=== PATIENT | female | born 1940 | race American Indian/Alaskan Native ===

== ENCOUNTER 2019-02-02 06:16 | Day surgery (SDC) | payer MEDICARE ==
[~2019-02-02 06:16] MED LIST: TETRACAINE 0.5% OS NR
[2019-02-02] MEDS: MYDRIACYL OS SCH ×3 (07:51→08:01)
[2019-02-02] MEDS: AK-Dilate OS SCH ×3 (07:51→08:01)
[2019-02-02] MEDS: VIGAMOX OS SCH ×3 (07:51→08:01)
[2019-02-02] MEDS ORDERED: VERSED ONE (08:26)
--- NOTE | 2019-02-02 08:39 | Anesthesia Consultation ---
Anesthesia Consult and Med Hx Date of service: 02/02/19 - Airway ROM Head & Neck: Inadequate Mental/Hyoid Distance: Adequate Mallampati Class: Class III Intubation Access Assessment: Possibly Difficult - Pulmonary Exam CTA: Yes - Cardiac Exam Cardiac Exam: RRR - Pre-Operative Health Status ASA Pre-Surgery Classification: ASA3 Proposed Anesthetic Plan: MAC - Pulmonary Hx Smoking: No Hx Sleep Apnea: Yes - Cardiovascular System Hx Hypertension: Yes Hx Heart Attack/AMI: No - Central Nervous System Hx Psychiatric Problems: Yes - Gastrointestinal Hx Ulcer: Yes Hx Gastroesophageal Reflux Disease: Yes - Endocrine Hx Renal Disease: No Hx Hypothyroidism: Yes - Other Systems Hx Obesity: No
--- NOTE | 2019-02-02 08:39 | Anesthesia Day of Surgery ---
Anesthesia Day of Surgery - Day of Surgery Patient Examined: Yes Patient H&P Reviewed: Yes Patient is NPO: Yes
--- NOTE | 2019-02-02 09:01 | Operative Report ---
Operative Report Operative Report: PATIENT'S NAME: DATE OF : DATE OF SURGERY: 02/02/2019 PREOPERATIVE DIAGNOSIS: Cataract left eye POSTOPERATIVE DIAGNOSIS: Same OPERATIVE PROCEDURE: Phacoemulsification with intraocular lens implantation, left eye SURGEON: Chiqui Brown M.D. SENIOR MILITARY ANALYST SURGEON: Valorie Lens: [id number] 15.0 D ANESTHESIA: Monitored anesthesia care in combination with topical and intracameral anesthesia because of the established specific risk of reflux, arrhythmias, or anxiety attacks associated with ocular manipulation, as well as the difficulty of the weaver narrow fabrics to manage such potentially catastrophic events while simultaneously attempting to complete the surgical procedure and was deemed necessary for the patient's safety to have an Reclamation Furnace Operator present during the procedure whenever possible. An Reclamation Furnace Operator was utilized to regulate the intravenous sedation of the patient so the patient was cooperative yet not asleep in order for the patient to successfully maintain fixation of the eye on the operating light of the microscope. COMPLICATIONS: No surgical complications No blood loss. ALLERGIES: No known drug allergies PROGNOSIS: Excellent INDICATIONS FOR SURGERY: The patient is undergoing surgery in the hopes of eliminating or improving these visual difficulties. Of note patient is also diagnosed recently with FUCHS' dystrophy PROCEDURE: After arriving at the surgery center, the patient was given topical anesthetic and dilating drops, as noted in the record. The patient was then taken into the operating room and given more anesthetic drops. The eyelids, lashes, and lid margins were scrubbed with Betadine solution, and the patient was draped. The Nurse Reclamation Furnace Operator administered IV sedation and monitored the patient during the procedure. The eye was then fixated with a 0.12, and a stab incision was made in the peripheral clear cornea into the anterior chamber. This was made on my left side. Viscoelastic was next used to fill the anterior chamber. The eye was once again fixated with the 0.12 forceps and a keratome was used make an incision in clear cornea peripherally on my right hand side temporally. The capsule forceps were used to open the central anterior capsule and then make a continuous round capsulotomy. Hydrodissection was carried out utilizing a cannula and balanced salt solution to delineate the cortical material from the capsule and the nucleus from the cortical material. The phaco tip was introduced into the eye and used to remove the anterior cortical material in the area of the capsulotomy. Then the phaco tip was buried into the nucleus, and a chopping instrument was introduced into the eye and used to provide countertraction in the nucleus between this instrument and the phaco tip fracturing the nucleus. This procedure was repeated multiple times, providing multiple small segments of the lens, and then the phaco tip was used to remove each of these segments. An I/A tip was then used to remove the remaining cortex. The anterior chamber was refilled with viscoelastic. An one-piece, acrylic intraocular lens was then placed into an inserting cartridge. The tip of the inserting cartridge was introduced into the keratome incision and into the anterior chamber. The implant was gently advanced through the cartridge and into the eye, where it unfolded, and both haptics were placed in the capsular bag, where it centered nicely and appeared to be well fixated. After placement of the intraocular lens, the I~and~A handpiece was placed back into the eye and used to remove the viscoelastic, including viscoelastic that was behind the optic of the intraocular lens. The anterior chamber was then filled with balanced salt solution, and hydration of the wound was used to cause swelling of the wound and more appropriate watertight closure. When the wound was found to be firm, the patient was asked to comment on how bright the light was. If there was no light perception at all or if the light was substantially dimmer than during the rest of the surgery, the amount of fluid in the eye was decompressed to lower the intraocular pressure until the patient could see the bright light again. This was done to avoid any damage or decreased blood flow to the optic nerve. MEDICATIONS APPLIED AT END OF SURGERY: One drop of Pred Forte and Vigamox The patient was given a shield to wear at night and was instructed not to rub or push on the eye. DISCHARGE SUMMARY: The patient was released in stable condition. The patient and those with the patient were given a written sheet of postoperative instructions and counseling on any abnormal laboratory studies. The patient is to see us tomorrow for follow-up in the office and is to call immediately for any difficulties. Chiqui Brown M.D. Date
--- NOTE | 2019-02-02 09:02 | Short Stay Summary ---
Short Stay Documentation Date of service: 02/02/19 - History H&P: obtained from office - Allergies and Medications Current Medications: Allergies No Known Allergies Allergy (Verified 02/01/19 13:01) Home Medications Medication Instructions Recorded Confirmed Last Taken Type Amitriptyline [Elavil] 2 tab PO QHS 02/01/19 02/01/19 Unknown History Bacillus Coagulans [Digestive 1 tab PO DAILY 02/01/19 02/01/19 Unknown History Advantage] C,E,Zinc,Copper 11/Ytjrg1e/Lut 1 each PO DAILY 02/01/19 02/01/19 Unknown History [Ocuvite Adult 50 Plus Softgel] C/Sourcherry/Celery/Grape Seed 1 each PO DAILY 02/01/19 02/01/19 Unknown History [Tart Benedict Capsule] Cholecalciferol (Vitamin D3) 5,000 unit PO DAILY 02/01/19 02/01/19 Unknown History [Vitamin D3] Cyanocobalamin (Vitamin B-12) 2,500 mcg PO DAILY 02/01/19 02/01/19 Unknown History [Vitamin B12] Docusate Sodium [Stool Softener] 100 mg PO DAILY PRN 02/01/19 02/01/19 Unknown History Duloxetine HCl [DULoxetine] 60 mg PO QHS 02/01/19 02/01/19 Unknown History Fenofibrate 160 mg PO DAILY 02/01/19 02/01/19 Unknown History Fluticasone [Flonase] 1 spray NS BID 02/01/19 02/01/19 Unknown History Furosemide [Lasix TAB] 20 mg PO DAILY 02/01/19 02/01/19 Unknown History Laila Root [Laila] 250 mg PO DAILY 02/01/19 02/01/19 Unknown History HYDROcodone/APAP 7.5-325 [[place] 1 tab PO BID PRN 02/01/19 02/01/19 Unknown History 7.5-325 mg TAB] Latanoprost 0.005% 1 drop OP DAILY 02/01/19 02/01/19 Unknown History Levothyroxine [Synthroid] 100 mcg PO QAM 02/01/19 02/01/19 Unknown History Meloxicam 15 mg PO DAILY 02/01/19 02/01/19 Unknown History Metoprolol Xl [Metoprolol 50 mg PO QDAY 02/01/19 02/01/19 Unknown History SUCCINATE ER TAB] Multivit-Min/Iron/Folic/Lutein 1 each PO DAILY 02/01/19 02/01/19 Unknown History [Centrum Silver Women Tablet] Omeprazole 40 mg PO QAM 02/01/19 02/01/19 Unknown History Potassium Chloride [Klor-Con M10] 10 meq PO Q48H 02/01/19 02/01/19 Unknown History Psyllium Seed (with Sugar) 1 each PO DAILY 02/01/19 02/01/19 Unknown History [Metamucil Fiber Wafer] Soy Isofla/Blk Cohosh/Mag Bark 155 mg PO DAILY 02/01/19 02/01/19 Unknown History [Estroven 155 mg Capsule] Ubidecarenone [Coq10] 200 mg PO DAILY 02/01/19 02/01/19 Unknown History amLODIPine [Norvasc] 5 mg PO DAILY 02/01/19 02/01/19 Unknown History tiZANidine [Zanaflex] 4 mg PO QHS 02/01/19 02/01/19 Unknown History traMADol [Ultram 50 MG tab] 50 mg PO DAILY PRN 02/01/19 02/01/19 Unknown History Active Medications Acetazolamide (Diamox) 500 mg PO ONCE ONE Stop: 02/02/19 09:00 Moxifloxacin HCl (Vigamox) 1 drops OS Q5MIN JUDIT Stop: 02/04/19 23:59 Last Admin: 02/02/19 08:01 Dose: 1 drops Documented by: Phenylephrine HCl (Ak-Dilate) 1 drops OS Q5MIN JUDIT Stop: 02/04/19 23:59 Last Admin: 02/02/19 08:01 Dose: 1 drops Documented by: Prednisolone Acetate (Pred Forte 1%) 1 drops OS QID JUDIT Tetracaine HCl (Tetracaine 0.5%) 1 drops OS ONCE NR Stop: 02/02/19 23:59 Last Admin: 02/02/19 07:50 Dose: 1 drops Documented by: Tropicamide (Mydriacyl) 1 drops OS Q5MIN JUDIT Stop: 02/02/19 23:59 Last Admin: 02/02/19 08:01 Dose: 1 drops Documented by: - Brief post op/procedure progress note Date of procedure: 02/02/19 Pre-op diagnosis: left cataract Post-op diagnosis: same Procedure: Phacoemulsification with intraocular lens insertion left eye Anesthesia: MAC, local Surgeon: RADHA SERNA Estimated blood loss: none Pathology: none Condition: stable - Disposition Condition at discharge: Good Disposition: DC-01 TO HOME OR SELFCARE - Discharge Diagnoses (1) Nuclear age-related cataract, left eye Status: Resolved Short Stay Discharge Plan Follow up with: ASIA TINAJERO MD [Primary Care Provider] - 7 Days
[2019-02-02] MEDS ORDERED: DIAMOX PO NR (09:30)
[2019-02-02] MEDS ORDERED: PRED FORTE 1% OS SCH (10:00)
[2019-02-02 10:10] VITALS: BP 156/84
--- NOTE | 2019-02-02 11:52 | Post Anesthesia Evaluation ---
- Post Anesthesia Evaluation Patient Participated: Yes Airway Patent: Yes Stable Respiratory Function: Yes Nausea/Vomiting: No Temp > 96.8F: Yes Pain Manageable: Yes Adequeate Hydration: Yes Anesthesia Complications: No
== END 2019-02-02 10:05 | disposition home or self-care (01) ==
LOC: OR 06:16
DX: H25.12 Age-related nuclear cataract, left eye (principal); H40.9 Unspecified glaucoma; E78.00 Pure hypercholesterolemia, unspecified; I10 Essential (primary) hypertension; G47.30 Sleep apnea, unspecified; K21.9 Gastro-esophageal reflux disease without esophagitis; M19.90 Unspecified osteoarthritis, unspecified site; E03.9 Hypothyroidism, unspecified; F41.9 Anxiety disorder, unspecified; Z80.0 Family history of malignant neoplasm of digestive organs; Z79.899 Other long term (current) drug therapy; Z98.51 Tubal ligation status; Z96.651 Presence of right artificial knee joint; Z98.890 Other specified postprocedural states
CPT/HCPCS: 66984; J2250; V2632

== ENCOUNTER 2019-10-27 13:12 | Outpatient (CLI) | payer MEDICARE ==
--- NOTE | 2019-10-27 14:50 | Mammography Report ---
BILATERAL DIGITAL SCREENING MAMMOGRAM WITH CAD INDICATION: Routine screening mammography. TECHNIQUE: Digital bilateral 2D mammography was obtained in the craniocaudal and mediolateral obliq ue projections. This examination was interpreted with the benefit of Computer-Aided Detection analysi s. COMPARISON: 09/22/2018, 09/16/2017, 08/03/2016. FINDINGS: Breast Density: The breasts are almost entirely fatty. No suspicious mass, microcalcifications, or architectural distortion. IMPRESSION: No evidence of breast malignancy. Recommend routine screening mammogram in one year. BI-RADS Category 1: Negative. No mammographic evidence of malignancy. Recommend routine screening m ammography in one year. A "normal" or negative report should not discourage follow up or biopsy of a clinically significant f inding. A written summary of these findings will be mailed to the patient. The patient will be entered into a mammography reporting system which will generate a reminder letter for the patient's next appointmen t at the appropriate interval. The [employer] recommends yearly mammograms starting at age 40 and continuing as l billy as a woman is in good health. Breast MRI is recommended for women with an approximate 20-25% or greater lifetime risk of breast cancer, including women with a strong family history of breast or ova zoraida cancer or who have been treated for Hodgkin's disease. Signer Name: Dave Pereira MD Signed: 10/27/2019 2:46 PM Workstation Name: [id number]
== END 2019-10-27 13:13 | disposition home or self-care (01) ==
LOC: MAMMO 13:12
PROVIDERS: ATTEND Internal Medicine
DX: Z12.31 Encounter for screening mammogram for malignant neoplasm of breast (principal)
CPT/HCPCS: 77067

== ENCOUNTER 2021-05-02 12:41 | Outpatient (CLI) | payer MEDICARE ==
--- NOTE | 2021-05-02 16:49 | Mammography Report ---
DIGITAL SCREENING MAMMOGRAM WITH CAD, 05/02/2021 CLINICAL INFORMATION / INDICATION: Routine screening TECHNIQUE: Digital bilateral 2D mammography was obtained in the craniocaudal and mediolateral obliqu e projections. This examination was interpreted with the benefit of Computer-Aided Detection analysis . COMPARISON: 10/27/2019 FINDINGS: Breast Density: The breasts are almost entirely fatty. No dominant mass, suspicious calcifications, or architectural distortion in either breast. IMPRESSION: No mammographic evidence of malignancy. Follow up recommendation: Routine yearly BI-RADS Category 1: Negative. A "normal" or negative report should not discourage follow up or biopsy of a clinically significant f inding. A written summary of these findings will be mailed to the patient. The patient will be entered into a mammography reporting system which will generate a reminder letter for the patient's next appointmen t at the appropriate interval. The [employer] recommends yearly mammograms starting at age 40 and continuing as l billy as a woman is in good health. Breast MRI is recommended for women with an approximate 20-25% or greater lifetime risk of breast cancer, including women with a strong family history of breast or ova zoraida cancer or who have been treated for Hodgkin's disease. Signer Name: Cesar Cleaning MD Signed: 05/02/2021 4:44 PM Workstation Name: [employer]
== END 2021-05-02 12:42 | disposition home or self-care (01) ==
LOC: MAMMO 12:41
PROVIDERS: ATTEND Internal Medicine
DX: Z12.31 Encounter for screening mammogram for malignant neoplasm of breast (principal)
CPT/HCPCS: 77067